=== PATIENT | female | born 1990 | race Caucasian/White ===

== ENCOUNTER 2023-10-06 15:24 | Emergency (ER) | payer MEDICAID ==
[~2023-10-06] VITALS: Ht 160 cm; Wt 59.0 kg
[2023-10-06 15:33] VITALS: BP 132/86
[2023-10-06] MEDS ORDERED: CEPH500 PO (15:39)
[2023-10-06] MEDS ORDERED: SULTRIDS PO (15:39)
== END 2023-10-06 15:45 | disposition home or self-care (01) ==
LOC: ER 15:24
DX: L03.211 Cellulitis of face (principal); J34.0 Abscess, furuncle and carbuncle of nose; L01.00 Impetigo, unspecified
CPT/HCPCS: 99283